=== PATIENT | male | born 1985 | race Caucasian/White ===

== ENCOUNTER 2017-03-01 17:58 | Emergency (ER) | payer OTHER ==
[2017-03-01] MEDS: NS 1,000 ML IV (18:37)
[2017-03-01] MEDS: GLUCAGON FOR INJ 1 MG VIAL (J1610) IV ×2 (18:37→19:09)
== END 2017-03-01 20:14 | disposition home or self-care (01) ==
LOC: M ED 17:58
DX: T18.108A Unspecified foreign body in esophagus causing other injury, initial encounter (principal); Y92.89 Other specified places as the place of occurrence of the external cause
CPT/HCPCS: J1610